=== PATIENT | male | born 1975 | race Caucasian/White ===

== ENCOUNTER 2017-03-07 11:50 | Emergency (ER) | payer OTHER ==
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
[2017-03-07 12:07] VITALS: BMI 31.4
[2017-03-08 22:37] VITALS: BP 119/68; PULSE 89; TEMP 98.2
== END 2017-03-07 12:46 | disposition home or self-care (01) ==
LOC: JER 11:50
DX: J70.5 Respiratory conditions due to smoke inhalation (principal); F17.210 Nicotine dependence, cigarettes, uncomplicated; X08.8XXA Exposure to other specified smoke, fire and flames, initial encounter; Y93.89 Activity, other specified; Y92.9 Unspecified place or not applicable; Y99.0 Civilian activity done for income or pay
CPT/HCPCS: 82375; 99283-25